=== PATIENT | female | born 1985 | race Hispanic/Latino ===

== ENCOUNTER 2021-03-21 09:08 | Outpatient (CLI) | payer OTHER ==
[2021-03-21 19:50] LABS: SARS-CoV-2 PCR by NAA DETECTED (NotDetected)
== END 2021-03-21 09:09 | disposition home or self-care (01) ==
LOC: CSHLAB 09:08
PROVIDERS: ATTEND Obstetrics & Gynecology
DX: U07.1 COVID-19 (principal)
CPT/HCPCS: U0003; U0005

== ENCOUNTER 2021-03-24 05:30 | Inpatient (IN) | payer OTHER ==
[2021-03-26] MEDS ORDERED: HYDROcodone/Acetaminophen 5/325 mg Tablet PO PRN (05:37)
[2021-03-26] MEDS ORDERED: Methylergonovine 0.2 MG/ML VIAL IM PRN (05:37)
[2021-03-26] MEDS ORDERED: hydrALAZINE 20 MG/ML VIAL SLOW IVP PRN (05:37)
[2021-03-26] MEDS ORDERED: Docusate 100 MG CAP PO PRN (05:37)
[2021-03-26] MEDS ORDERED: Carboprost 250 MCG/ML AMP IM PRN (05:37)
[2021-03-26] MEDS ORDERED: Diphenoxylate HCl/Atropine Tablet PO PRN ×2 (05:37)
[2021-03-26] MEDS ORDERED: Lidocaine 1% (PF) 30 ML VIAL SC PRN (05:37)
[2021-03-26] MEDS ORDERED: Ibuprofen 800 MG TAB PO PRN (05:37)
[2021-03-26] MEDS ORDERED: Ondansetron PF 4 MG/2 ML Vial IVP PRN ×2 (05:37→08:18)
[2021-03-26] MEDS ORDERED: Promethazine HCl 25 MG/ML VIAL IM PRN ×2 (05:37→08:18)
[2021-03-26] MEDS ORDERED: Butorphanol Tartrate 1 MG/ML VIAL SLOW IVP PRN (05:37)
[2021-03-26] MEDS ORDERED: Acetaminophen 500 MG TAB PO PRN (05:37)
[2021-03-26] MEDS ORDERED: Zolpidem Tartrate 5 MG TAB PO PRN (05:37)
[2021-03-26] MEDS ORDERED: Misoprostol 200 MCG TAB PR PRN (05:37)
[2021-03-26 05:44] VITALS: BMI 31.6
[2021-03-26] MEDS ORDERED: NS w/ Oxytocin 30 units 500 ML IV SCH ×2 (05:45)
[2021-03-26 06:25] LABS: Hemoglobin 12.3 g/dL (12.0-15.5); Mean Corpuscular HGB CONC 33.5 g/dL (32.0-36.0); Mean Corpuscular Hemoglobin 31.8 pg (27.0-33.0); Mean Corpuscular Volume 94.8 fl (81.6-98.3); Mean Platelet Volume 10.2 fl (7.4-10.4); Platelet Count 253 10x3/uL (150-450); Red Blood Cell (RBC) Count 3.87 10x6/uL (3.90-5.03); White Blood Cell (WBC) Count 10.8 10x3/uL (3.5-10.5)
[2021-03-26] MEDS: Misoprostol 100 MCG TAB VAG SCH ×4 (06:29→15:39)
[2021-03-26] MEDS ORDERED: ePHEDrine Sulfate 50 MG/10 ML VIAL ONE (07:00)
[2021-03-26 07:08] LABS: Hep B Surf Ag Non-Reactive S/CO (NonReactive)
[2021-03-26 07:09] LABS: Syphilis Antibody Nonreactive (Nonreactive); Syphilis Antibody Index 0.04 S/CO (<1.00 Non-Reactive)
[2021-03-26 07:11] LABS: HBSAg Index 0.19 S/CO (0-0.99)
[2021-03-26] MEDS ORDERED: Lactated Ringer's 500 ML IV PRN (08:18)
[2021-03-26] MEDS ORDERED: ePHEDrine Sulfate 50 MG/10 ML VIAL SLOW IVP PRN (08:18)
[2021-03-26] MEDS ORDERED: diphenhydrAMINE 50 MG/ML VIAL IVP PRN (08:18)
[2021-03-26] MEDS ORDERED: Acetaminophen 325 MG TAB PO PRN (08:18)
[2021-03-26] MEDS ORDERED: Hydrocerin (Eucerin) Cream 120 gm Jar TOP PRN (08:18)
[2021-03-26] MEDS ORDERED: Naloxone HCl 0.4 mg/ml Vial IVP PRN ×2 (08:18)
[2021-03-26] MEDS ORDERED: Fentanyl 2 mcg/Bupivacaine 0.1% Cassette 100 ML EPIDURAL SCH (08:30)
[2021-03-26] MEDS ORDERED: Communication Order-Pharmacy FS SCH (08:30)
[2021-03-26] MEDS: Lactated Ringer's 1,000 ML IV SCH ×2 (13:45→15:51)
[2021-03-26] MEDS ORDERED: Fentanyl 2 mcg/Bup 0.1% Cadd 100 ML ONE (20:00)
[2021-03-27] MEDS ORDERED: Benzocaine-Menthol 82.5 ML CAN TOP PRN (01:22)
[2021-03-27] MEDS ORDERED: Misoprostol 200 MCG TAB VAG PRN (01:22)
[2021-03-27] MEDS ORDERED: Milk Of Magnesia 30 ML UDCUP PO PRN (01:22)
[2021-03-27] MEDS ORDERED: Preparation H Ointment 28 GM TUBE PR PRN (01:22)
[2021-03-27] MEDS ORDERED: Lanolin Ointment 7 GM TUBE TOP PRN (01:22)
[2021-03-27] MEDS ORDERED: NS w/ Oxytocin 30 units 500 ML IV SCH (01:22)
[2021-03-27] MEDS ORDERED: Methylergonovine 0.2 MG TAB PO PRN (01:22)
[2021-03-27] MEDS ORDERED: Zolpidem Tartrate 5 MG TAB PO PRN (01:22)
[2021-03-27] MEDS ORDERED: Boostrix 0.5 ML (Tdap) VIAL IM ONE (01:22)
[2021-03-27] MEDS ORDERED: diphenhydrAMINE 25 MG CAP PO PRN (01:22)
[2021-03-27] MEDS ORDERED: Varicella virus, LIVE 0.5 ML VIAL SC ONE (01:22)
[2021-03-27] MEDS ORDERED: Bisacodyl 10 MG SUPP PR PRN (01:22)
[2021-03-27] MEDS ORDERED: Ondansetron PF 4 MG/2 ML Vial IVP PRN (01:22)
[2021-03-27] MEDS ORDERED: hydrALAZINE 20 MG/ML VIAL SLOW IVP PRN (01:22)
[2021-03-27] MEDS ORDERED: Promethazine HCl 25 MG/ML VIAL IM PRN (01:22)
[2021-03-27] MEDS ORDERED: Measles/Mumps/Rubella 10 MCG/0.5 ML VIAL SC ONE (01:22)
[2021-03-27] MEDS: Ibuprofen 800 MG TAB PO SCH ×3 (04:31→21:51)
[2021-03-27 05:09] LABS: Hemoglobin 11.5 g/dL (12.0-15.5); Mean Corpuscular HGB CONC 33.3 g/dL (32.0-36.0); Mean Corpuscular Hemoglobin 31.9 pg (27.0-33.0); Mean Corpuscular Volume 95.8 fl (81.6-98.3); Mean Platelet Volume 10.1 fl (7.4-10.4); Platelet Count 240 10x3/uL (150-450); RBC Distribution Width 13.7 % (11.5-14.5); White Blood Cell (WBC) Count 15.7 10x3/uL (3.5-10.5)
[2021-03-27] MEDS: Ferrous Sulfate 325 MG TAB PO SCH ×2 (08:56→14:37)
[2021-03-27] MEDS: Docusate 100 MG CAP PO SCH ×2 (09:00→21:51)
[2021-03-27] MEDS: Prenatal Vitamin 1 TAB PO SCH (09:00)
[2021-03-27] MEDS: HYDROcodone/Acetaminophen 5/325 mg Tablet PO PRN (20:26)
[2021-03-28] MEDS: Ibuprofen 800 MG TAB PO SCH ×2 (05:33→13:35)
[2021-03-28] MEDS: Ferrous Sulfate 325 MG TAB PO SCH (07:37)
[2021-03-28] MEDS: Prenatal Vitamin 1 TAB PO SCH (08:57)
[2021-03-28] MEDS: Docusate 100 MG CAP PO SCH (08:57)
[2021-03-28 09:39] VITALS: BP 100/60; TEMP 97.6
[2021-03-28] MEDS: HYDROcodone/Acetaminophen 5/325 mg Tablet PO PRN (11:31)
== END 2021-03-28 13:45 | disposition home or self-care (01) | DRG 805 ==
LOC: CSHLD 03-26 05:05 → CSHANTE 03-27 01:15
PROVIDERS: ADMIT Obstetrics & Gynecology; ATTEND Obstetrics & Gynecology
PROC: 10E0XZZ Delivery of Products of Conception, External Approach (ICD-10-PCS; principal; 2021-03-26)
DX: O98.52 Other viral diseases complicating childbirth (principal); U07.1 COVID-19; Z37.0 Single live birth; Z3A.39 39 weeks gestation of pregnancy
CPT/HCPCS: 36415; 51702; 85027; 86780; 86850; 86900; 86901; 87340; J2590; J7120

== ENCOUNTER 2021-07-03 10:21 | Outpatient (CLI) | payer MEDICAID ==
[2021-07-03 20:31] LABS: SARS-CoV-2 PCR by NAA Not Detected (NotDetected)
== END 2021-07-03 10:22 | disposition home or self-care (01) ==
LOC: CSHLAB 10:21
PROVIDERS: ATTEND Surgery
DX: Z20.822 Contact with and (suspected) exposure to COVID-19 (principal)
CPT/HCPCS: U0003; U0005

== ENCOUNTER 2021-07-06 09:07 | Day surgery (SDC) | payer MEDICAID ==
[2021-07-03 15:30] VITALS: BMI 30.9
[2021-07-06] MEDS ORDERED: Lidocaine 1% MPF 2 ML VIAL ONE (10:42)
[2021-07-06 10:49] LABS: BHCG - Serum Negative (NEGATIVE); Pregs Control Background? CLEAR/WHITE (CLR/WHITE); Pregs Control Bar Appear? YES (CONTROL BAR)
[2021-07-06] MEDS ORDERED: Bupivacaine PF 0.5% 30 ML VIAL ONE (12:08)
[2021-07-06] MEDS ORDERED: EPINEPHrine 1 MG/ML AMP ONE (12:08)
[2021-07-06] MEDS ORDERED: Fentanyl 100 MCG/2 ML VIAL ONE ×2 (12:08→13:10)
[2021-07-06] MEDS ORDERED: PROPOFOL 20 ML ONE (12:08)
[2021-07-06] MEDS ORDERED: ceFAZolin 2 GM/Dextrose 50 ML IVPB ONE (12:12)
[2021-07-06] MEDS ORDERED: Lidocaine 1% PF 5 ML VIAL ONE (12:13)
[2021-07-06] MEDS ORDERED: Dexamethasone 4 mg/ml Vial ONE (12:13)
[2021-07-06] MEDS ORDERED: Ondansetron PF 4 MG/2 ML Vial ONE (12:13)
[2021-07-06] MEDS ORDERED: Rocuronium Bromide 10 MG/ML (10ML VIAL) ONE (12:13)
[2021-07-06] MEDS ORDERED: HYDROcodone/Acetaminophen 5/325 mg Tablet PO PRN (12:19)
[2021-07-06] MEDS ORDERED: Acetaminophen 325 MG TAB PO PRN (12:19)
[2021-07-06] MEDS ORDERED: Ketorolac Tromethamine 30 MG/ML VIAL ONE (12:29)
[2021-07-06] MEDS ORDERED: Glycopyrrolate 0.2 MG/ML 5 ML SYRINGE ONE (12:45)
== END 2021-07-06 14:20 | disposition home or self-care (01) ==
LOC: CSHSDC 09:07
PROVIDERS: ATTEND Surgery
PROC: 0WQF0ZZ Repair Abdominal Wall, Open Approach (ICD-10-PCS; principal; 2021-07-06)
DX: K42.9 Umbilical hernia without obstruction or gangrene (principal); E78.00 Pure hypercholesterolemia, unspecified
CPT/HCPCS: 36415; 84703; J0171; J0690; J1100; J1885; J2405; J2704; J3010; S0020